=== PATIENT | female | born 2000 | race Caucasian/White ===

== ENCOUNTER 2024-07-14 08:29 | Outpatient (AMB) | payer OTHER, MEDICAID, SELFPAY ==
--- NOTE | 2024-07-14 08:36 | AMB.OBINITIA ---
Vital Signs 07/14/24 08:38 Height 1.75 m Height Method Stated Weight 287.6 kg Weight Measurement Method Standing Scale BMI 93.6 BP 121/78 Blood Pressure Source Automatic Cuff Blood Pressure Location Left Upper Arm Position Sitting Respiration 18 Pulse 77 Pulse Source Monitor Temp 97.8 F Temp Source Temporal Artery Scan Pulse Oximetry (%) 98 Oxygen Delivery Method Room Air Allergies/Home Meds Allergies & Medications Allergies latex Allergy (Verified 07/14/24 08:39) midazolam (From Versed) Allergy (Verified 07/14/24 08:39) Intake Visit Data Collection New Patient or Established: New Patient (never been to [facility]) Reason for Visit:: OBI Do You Feel Safe at Home: Yes Authorities Contacted: N/A PCP or OBGYN visit in last 3 months: Yes Last menstrual period: 06/03/24 Pain Present Currently: No Smoking Status Smoking Status: Never smoker Questionnaires Covid-19 Vaccine Questionnaire Has patient been vacinated for Covid-19 Have you been vacinated for Covid-19: Yes PHQ-9 PHQ-2 Over the last 2 weeks, how often have you been bothered by any of the following problems? 1. Little interest or pleasure in doing things: not at all 2. Feeling down, depressed, or hopeless: several days Total score: 1 PHQ-9 3. Trouble falling or staying asleep, or sleeping too much: Nearly every day 4. Feeling tired or having little energy: Nearly every day 5. Poor appetite or overeating: Several days 6. Feeling bad about yourself - or that you are a failure or have let yourself or your family down: Not at all 7. Trouble concentrating on things, such as reading the newspaper or watching television: Nearly every day 8. Moving or speaking so slowly that other people could have noticed? - Or the opposite - being so fidgety or restless that you have been moving around a lot more than usual: not at all 9. Thoughts that you would be better off or of hurting yourself in some way: Not at all Total score: 11.0 Source: Developed by Drs. Mike Silvestre, Myah Reed, Johnnie Mar and colleagues, with an educational viktor from [employer]. Depression screen completed yes Social History Living Situation History Marital Status: Life Partner Lives With: Spouse Housing: House Tobacco History Smoking Status: Never smoker Alcohol History Alcohol Intake: Current Domestic Abuse History Do You Feel Safe at Home: Yes History of Present Illness HPI Narrative The patient is a 24-year-old G1, P0 who presents with her significant other for new OB appointment. Patient is extremely high risk and cannot be followed here. She just had a Pap smear in January. 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 I have no records. Patient states that she was on 2 medications for seizures and her neurologist told her to stop 1 she is now on Keppra. Her psychiatric provider told her to stop her bipolar medication so she is off Abilify and she is also off Lexapro. Patient needs to be managed by high risk physician. Her LMP was 06/03/2024 making her approximately 6 weeks. Of note patient has not been on extra folic acid and we will prescribe this now. She has mild nausea no vaginal bleeding OB Ultrasound Indication Indication: Size, dates ,viability OB Ultrasound Ultrasound technique: transvaginal Gestational sac assessment: Presence, location, size, shape: Intrauterine seen with a crown-rump length of 6 weeks with a flicker noted. March 08, 2025 ZIG ZAG STITCHER: Past Medical History Past Medical History: Yes Hx Neurological Disorders (History of a brain tumor in frontal lobe with brain surgery in 2011) and Yes Psychiatric Problems (Bipolar on the blood Abilify and Lexapro) Additional Operations/Hospitalizations (year & reason): Brain surgery frontal lobe brain tumor removed 2014 multiple hospitalizations for seizures. Other Relevant History: Bipolar on Abilify and Lexapro on 4500 mg of Keppra a day ,was on another antiseizure medicine that her doctor told her to discontinue. Patient has possible GI ulcers also. OB Initial Visit Menstrual History Menstrual reliability: definite Flow: light Menstrual regularity: regular Monthly: Yes Age at menarche: 12 On control pills at conception: No Date of positive home test: 06/09/24 Associated symptoms (LMP): Reports fatigue and breast tenderness OB History : 1 Infection History & Risk Evaluation History of STDs: none HIV risk evaluation: low risk Hepatitis B risk evaluation: low risk Patient or partner has history of Genital Herpes: No Genetic Screening & History Genetic Screening/Teratology Counseling - Includes patient, baby's father, or anyone in either family with: 1. Patient's age 35 years or older as of estimated date of delivery: No 2. Thalassemia (Polish, Yakut, Mediterranean, or Background); MCV less than 80: No 3. Neural Tube Defect (Meningomyelocele, Spina Bifida, or Anencephaly): No 4. Congenital Heart Defect: No 5. Down Syndrome: No 6. Calvin-Sachs (Ashkenazi Alevism, Cajun, [place]): No 7. Jack Disease (Ashkenazi Alevism): No 8. Familial Dysautonomia (Ashkenazi Alevism): No 9. Sickle Cell Disease or Trait (): No 10. Hemophilia or other blood disorders: No 11. Muscular Dystrophy: No 12. Cystic Fibrosis: No 13. Mifflin's Chorea: No 14. Mental Retardation/Autism: No 15. Other inherited genetic or chromosomal disorder: No 16. Maternal Metabolic Disorder (EG,TYPE 1 Diabetes, PKU): No 17. Patient or baby's father had a child with defects not listed above: No 18. Recurrent loss or a stillbirth: No 19. Medications (including supplements, vitamins, herbs or otc drugs)/illicit/recreational drugs/alcohol since last menstrual period: No 20. Any other: No Infection History 1. Live with someone with TB or exposed to TB: No 2. Rash or viral illness since last menstrual period: No 3. Hepatitis B,C: No Other (see comments) Source: [employer] Review of Systems Review of Systems Narrative Review of Systems: Patient reports constant heartburn, stiffness in her neck and hips ,swelling in her feet and poor circulation, she denies any current depression. She was on an IUD and someone removed this. This is a desired . Constitutional Constitutional: Reports fatigue Endocrine Endocrine: Reports fatigue Exam General General Appearance: alert, in no apparent distress, comfortable, cooperative and obese Neck Neck exam: Present normal inspection, full ROM and trachea midline Chest Chest inspection: Present normal inspection and symmetric chest wall rise Resp Respiratory exam: Present normal lung sounds bilaterally Card Cardiovascular exam: Present regular rate, normal rhythm and normal heart sounds Abdominal Abdominal exam: Present soft and normal bowel sounds Skin Skin exam: Present warm, dry, intact and normal color Office Procedures OB Clinic LOC & Office Proc's Nursing/Assessment Patient Status: Initial/New Patient OB Clinic Nursing Assessment: BP Monitoring, Medication Reconciliation, Update PMH in EMR and Vital Signs OB Clinic Coordination of Care: Complex Care and Chronic Disease 1-5, Education Complex Pt/Fam, Consent,records obtained, informed consent, Results/Orders obtained and Staff clarify orders New Patient Charge New Patient Point Assignment: 1109 New Patient Point Charge: 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 We do not have the resources. She needs a higher level of care due to her bipolar disorder, morbid obesity, seizure disorder recently on 2 antiseizure medications, and a history of brain surgery. Will transfer care to Dr. Duggan for the remainder of her . (2) Bipolar disorder: Status: Acute Qualifiers: Active/Remission status: currently active Assessment and Plan: Prescribed Lexapro 20 mg p.o. daily patient to ask her psychiatrist about Abilify (3) Epilepsy affecting in first trimester: Status: Acute Assessment and Plan: On Keppra. Needs neurology follow-up add folic acid 4 mg today patient was not on this as of today (4) Morbid obesity with BMI of 40.0-44.9, adult: Status: Acute Assessment and Plan: Current weight 290 pounds add baby aspirin
[2024-07-14 08:38] VITALS: BP 121/78; PULSE 77; RESP 18; TEMP 36.6; O2SAT 98; BMI 93.6
== END 2024-07-14 09:29 | disposition home or self-care (01) ==
PROVIDERS: Supervising Provider Obstetrics & Gynecology; Visit Provider Obstetrics & Gynecology
DX: O09.891 Supervision of other high risk pregnancies, first trimester (principal); Z3A.01 Less than 8 weeks gestation of pregnancy; O99.341 Other mental disorders complicating pregnancy, first trimester; F31.9 Bipolar disorder, unspecified; F41.8 Other specified anxiety disorders; O99.211 Obesity complicating pregnancy, first trimester; E66.01 Morbid (severe) obesity due to excess calories; O99.351 Diseases of the nervous system complicating pregnancy, first trimester; G40.909 Epilepsy, unspecified, not intractable, without status epilepticus; Z86.69 Personal history of other diseases of the nervous system and sense organs; Z98.890 Other specified postprocedural states; Z91.040 Latex allergy status; Z79.899 Other long term (current) drug therapy
CPT/HCPCS: 76817; 99203; G0463